=== PATIENT | male | born 1950 | race Caucasian/White ===

== ENCOUNTER 2017-02-28 21:26 | Emergency (ER) | payer MEDICARE, OTHER ==
[~2017-02-28] VITALS: Ht 181.6 cm; Wt 84.1 kg
[~2017-02-28 21:26] MED LIST: AMLO2.5T PO; ATOR20TA PO; TRAM50TA2 PO; TRAZ-118 PO
[2017-02-28 21:29] VITALS: BP 152/89; PULSE 66; RESP 15; O2SAT 99
--- NOTE | 2017-02-28 23:29 | ED.REPORT ---
HPI-Rash / Abscess Date of Service Feb 28, 2017 ED Provider: Rocco Patrick MD A 66 year old male with no pertinent medical history presents to the ED complaining of an erythematous lump to his right collarbone that first appeared yesterday. The area has become increasingly swollen and itchy since onset. He reports a recent hiking trip 5 days ago and is currently expressing concern that the kenna is due to a venenous spider bite. He denies any recent fever, chills, angioedema or difficulty breathing. He denies any changes in medication. Nursing Notes Stated Complaint: INSECT BITE GROWTH IN THE PAST 6 HOURS Chief Complaint: Skin Rash/Abscess Nursing Notes Reviewed: Yes Allergies: Coded Allergies: Sulfa (Sulfonamide Antibiotics) (Verified Allergy, Severe, severe nausea and vomiting, 12/14/09) codeine (Verified Allergy, Severe, severe nausea/vomiting, 12/14/09) Penicillins (Verified Allergy, Unknown, 06/19/09) Scheduled Amlodipine (Amlodipine) 2.5 Mg Tablet 2.5 MG PO DAILY Atorvastatin (Lipitor) 20 Mg Tablet 20 MG PO DAILY Tramadol (Tramadol) 50 Mg Tablet 50 MG PO QPM Tramadol (Tramadol) 50 Mg Tablet 100 MG PO QAM Trazodone (Trazodone) 100 Mg Tablet 100 MG PO HS General Time Seen by MD: 22:51 Chief Complaint Red area Hx Obtained From: Patient Arrived By: Walk-in Onset Occurred: Yesterday Symptom Duration: Since onset Location: : Neck Quality: Itching Severity: Current: Moderate Severity: Maximum: Moderate Associated with: Denies Fever Pertinent Negative: Pt denies other symptoms Recent Healthcare: No recent doctor visit, No recent hospitalization Past Medical History Past Medical History None reported. Past Surgical History None reported. Smoking History Former Smoker Social History Other Social History: , Local resident Ambulatory Status Independent Review of Systems Constitutional: Denies: Chills, Fever Respiratory: Denies: Shortness of breath Skin: Reports Itching, Reports Rash (To the R collar bone), Reports Swelling Complete sys rev & neg: except as marked. Physical Exam Initial Vital Signs Vital Signs (First) Date Time Temp Pulse Resp B/P Pulse Ox O2 Delivery O2 Flow Rate FiO2 02/28/17 21:29 36.8 66 15 152/89 99 Room Air Initial VS: Reviewed Neck: Supple, Non-tender, Full range of motion Extremities: Vascular intact, Neuro intact, No swelling, No tenderness Neurologic: Alert, Oriented, Nonfocal Psychiatric: Mood/affect normal, Behavior normal, Normal thought content General/Constitutional: Awake, Alert, No acute distress Skin: Atraumatic, Color NL, Warm, Dry Color / Condition: Positive: Rash present Rash / Lesion Notes: RASH/LESION: 2 cm circular, flat, urticarial lesion with a small black center consistent with either a scab or an area of small necrotic tissue Lesion is consistent with insect bite or sting Rash / Lesion Location: Positive: Neck Head / Eyes: Atraumatic, Normocephalic, PERRL ENT: Atraumatic, Airway patent, Mucous membranes moist, Pharynx NL Respiratory / Chest: Atraumatic, Breath sounds NL, Breath sounds = bilat, No respiratory distress Cardiovascular: Heart rate NL, Regular rhythm, Heart sounds NL Re-Eval/Medical Decision Med Decision/Clinical Course 66-year-old presents with an insect bite on his right clavicle. No particular suspicion of a necrotic spider bite, as the feared brown recluse does not live in the area, and hobo spider bite not likely necrotic. This appears to be an urticarial lesion consistent with a black fly bite or similar. Home with Claritin and hydrocortisone cream. Re-Evaluation/Progress : Time of Eval: 23:38 Patient Status: Condition improved Re-Evaluation/Progress Note: Patient is rechecked. Discussed potential causes for symptoms with the patient. All questions about the intended treatment plan are addressed. He understands and agrees with the plan. Counseled Regarding: Diagnosis, Need for follow-up, When/why to return to ED Discharge & Departure Impression: Primary Impression: Insect bite Encounter type: initial encounter Qualified Code: W57.XXXA - Bitten or stung by nonvenomous insect and other nonvenomous arthropods, initial encounter Disposition: Home Discharge Condition All VS Reviewed: Yes Condition: Improved Patient Instructions: Insect Bite or Sting (ED) Additional Instructions: You came to the ED today to be evaluated for a possible bite on your right chest. It certainly appears that you were stung by an insect of some sort. The bite does not look infected, or like a necrotizing spider bite. It looks like you are having a localized allergic reaction to the bite. We are giving you a topical steroid cream to apply to the bite four times daily to reduce itching and irritation. You can also take Claritin (generic loratadine) once daily. Follow-up with Dr. Yates in 2-3 days if the bite is not improving. Return to the ED if you develop increased swelling, red streaks, difficulty breathing, swollen throat, fever, chills, or multiple bumps on other areas of your body, or any other new symptoms of concern. Referrals: Shefali Hilario MD (PCP) Scribe Attestation Portions of this note were transcribed by Magy Mahoney. I, Dr. Patrick personally performed the history, physical exam and medical decision-making; I reviewed and confirmed the accuracy of the information in the transcribed note. Signed by: Alice Mccracken, 03/01/17 0003. copies to: Conor Hilario MD, Christopher W MD Feb 28, 2017 23:29 MAGY MAHONEY Feb 28, 2017 23:33
== END 2017-02-28 23:58 | disposition home or self-care (01) ==
LOC: SED 21:26
DX: S40.261A Insect bite (nonvenomous) of right shoulder, initial encounter (principal); W57.XXXA Bitten or stung by nonvenomous insect and other nonvenomous arthropods, initial encounter; Y93.01 Activity, walking, marching and hiking; Y92.9 Unspecified place or not applicable; Y99.8 Other external cause status; Z87.891 Personal history of nicotine dependence; Z88.0 Allergy status to penicillin; Z88.1 Allergy status to other antibiotic agents; Z88.2 Allergy status to sulfonamides